=== PATIENT | female | born 1970 | race Two or more races ===

== ENCOUNTER 2018-06-12 01:02 | Emergency (ER) | payer MEDICAID ==
[~2018-06-12] VITALS: Ht 157.5 cm; Wt 56.2 kg
[2018-06-12 02:40] VITALS: BP 113/63
== END 2018-06-12 03:50 | disposition home or self-care (01) ==
LOC: ER 01:02
DX: S50.01XA Contusion of right elbow, initial encounter (principal); S69.81XA Other specified injuries of right wrist, hand and finger(s), initial encounter; M79.631 Pain in right forearm; W20.8XXA Other cause of strike by thrown, projected or falling object, initial encounter; Y93.89 Activity, other specified; Y92.89 Other specified places as the place of occurrence of the external cause; Y99.8 Other external cause status
CPT/HCPCS: 73060; 73080; 73090; 73130